=== PATIENT | male | born 1950 | race African-American/Black ===

== ENCOUNTER 2017-05-11 13:00 | Inpatient (IN) | payer MEDICARE ==
[~2017-05-11] VITALS: Ht 177.8 cm; Wt 74.8 kg
--- NOTE | ~2017-05-11 | PN ---
Unit #: [id number] #: [id number] Patient: JORGE VALERIO [id number] [facility] [address] [place] [address] [id number] MR#: [id number] NAME: JORGE VALERIO ROOM: 32 Age: 67 Sex: M Admission Date: 05/12/2017 : 1950 Attending Physician: Cezar Barksdale M.D. Admitting Physician: Cezar Barksdale M.D. Primary Care Physician: Primary Care Physician No ANGELA PROGRESS NOTES DATE OF SERVICE 05/14/2017 DISCUSSION Jorge Valerio is a 67-year-old male seen on 05/14/2017. Patient interviewed, chart reviewed. Obtained information from nursing staff. Patient reported that he is feeling better, decrease in anxiety, depression, sleeping good. Tolerating medication fairly well but still isolative, guarded. Complete review of systems unremarkable. MENTAL STATUS EXAMINATION General appearance, patient dressed casually. Attention span and concentration fair. Oriented to time, place and person. Mood and affect sad, dysphoric. Speech monotone. Thought process concrete. Patient denied any suicidal or homicidal ideation but withdrawn, sad, dysphoric, guarded. Recent and remote memory poor. Insight and judgement poor. DIAGNOSIS Mood disorder NOS. ASSESSMENT/PLAN Advise to continue with current medication and therapeutic protocol. If needed consider further adjustment of medication. Dictated by... Juan Macias/melanie TD: 05/16/2017 03:13 JOB #: [id number] [facility] PROGRESS NOTES Page 1 of 1 X Cezar Barksdale MD PROGRESS NOTE
--- NOTE | ~2017-05-11 | PN ---
Unit #: [id number] #: [id number] Patient: JORGE VALERIO [id number] [facility] [address] [place] [address] [id number] MR#: [id number] NAME: JORGE VALERIO ROOM: 32 Age: 67 Sex: M Admission Date: 05/12/2017 : 1950 Attending Physician: Cezar Barksdale M.D. Admitting Physician: Cezar Barksdale M.D. Primary Care Physician: Primary Care Physician Leia MILLER PROGRESS NOTES DATE OF SERVICE 05/15/2017 DISCUSSION Mr. Jorge Valerio is a 67-year-old male seen on 05/15/2017. Patient continues to be isolative, flat affect, guarded, paranoid but denied any thoughts of harming self or others. Vital signs 98.2, 115, 20, 134/80. Patient was guarded, isolative. Complete review of systems unremarkable. MENTAL STATUS EXAMINATION General appearance, patient dressed casually. Attention span and concentration poor. Oriented to self and place. Mood and affect labile. Speech monotone. Thought process concrete. Patient denied any thoughts of harming self or others but somewhat guarded, paranoid, isolative, seclusive. Recent and remote memory poor. Insight and judgement poor. DIAGNOSIS Major depressive disorder recurrent severe with psychotic features. ASSESSMENT/PLAN Advise to continue with current medication and therapeutic protocol. If needed consider further adjustment of medication. Dictated by... Juan Macias/melanie TD: 05/17/2017 04:16 JOB #: [id number] Unit #: [id number] #: [id number] Patient: JORGE VALERIO PROGRESS NOTES Page 1 of 1 X Cezar Barksdale MD X PROGRESS NOTE
--- NOTE | ~2017-05-11 | PN ---
Unit #: [id number] #: [id number] Patient: JORGE VALERIO [id number] [facility] [address] [place] [address] [id number] I MR#: [id number] NAME: JORGE VALERIO ROOM: [facility] Age: 67 Sex: M Admission Date: 05/12/2017 : 1950 Attending Physician: Cezar Barksdale M.D. Admitting Physician: Cezar Barksdale M.D. Primary Care Physician: Primary Care Physician Leia AYON NOTES DATE OF SERVICE 05/16/2017 DISCUSSION Jorge Valerio is a 67-year-old male seen on 05/16/2017. The patient interviewed, chart reviewed. Obtained information from nursing staff. The patient was compliant, cooperative. Mood sad, dysphoric, flat affect, guarded. The patient was able to maintain safe behavior. No aggressive behavior. The patient compliant, cooperative. Mood sad, dysphoric, anxious. The patient denied any thoughts of harming self or others or any psychotic symptom. Complete Review of Systems: Unremarkable. MENTAL STATUS EXAMINATION General Appearance: The patient dressed casually. Attention span, concentration: Fair. Oriented in time, place, and person. Mood and affect labile. Sad, dysphoric, isolative. Attention span, concentration: Fair. Oriented in place and person. Mood and affect: Sad, depressed. Speech: Monotone. Thought process: [place]. The patient denied any thoughts of harming self or others or any psychotic symptom. Recent and remote memory: Poor. Insight and judgment: Poor. DIAGNOSIS Major depressive disorder, recurrent, severe. ASSESSMENT/PLAN Advised to continue with current medication and therapeutic protocol. If needed, consider further adjustment of medication. Dictated by... Juan Macias/juwan TD: 05/17/2017 12:46 JOB #: [id number] Unit #: [id number] #: [id number] Patient: OJRGE VALERIO PROGRESS NOTES Page 1 of 1 X Cezar Barksdale MD PROGRESS NOTE
--- NOTE | ~2017-05-11 | PA ---
Unit #: [id number] #: [id number] Patient: KRISTI VALERIO [id number] [facility] [address] [place] [address] [id number] MR#: [id number] NAME: KRISTI VALERIO ROOM: [facility] Age: 67 Sex: M Admission Date: 05/12/2017 : 1950 Date of Assessment: Attending Physician: Cezar Barksdale M.D. Admitting Physician: Cezar Barksdale M.D. PSYCHIATRIC ASSESSMENT INFORMANTS The patient reliability, fair informant and chart reliability, good. CHIEF COMPLAINT Depression, anxiety, and paranoia. HISTORY OF PRESENT ILLNESS Mr. Patel is a 57-year-old male, presented with the above-mentioned complaint. The patient was initially assessed on 05/07/2017. At that time, he was having symptoms of depression, paranoia, and suicidal ideation. The patient was subsequently admitted to [facility] and diagnosed with UTI. The patient was treated and subsequently transferred as he is still having symptoms of paranoia, depression, and anxiety. The patient is started on Risperdal and currently on Lexapro. The patient's family is concerned. The patient reported suicidal ideation. The patient stated that he did not have a plan and stated that the daughter said that he was aggressive towards her, but in his opinion he was not aggressive. The patient was in a delirious state when he was admitted to [facility], still having symptoms of anxiety, paranoia, and mood lability. The patient was calm and cooperative. Reported history of depression. The patient reported in the last 4 weeks increase in anxiety, depression, poor appetite, poor sleep, calling family members often for no reasons. The patient denied any homicidal ideation. Denied any auditory or visual hallucination, but paranoia. The patient's daughter is concerned with change of mental status and the above-mentioned symptoms. The patient has no history of any substance abuse. The patient also reported that he could not to go home and take care of himself with all these symptoms; therefore, needed inpatient admission at this time for psychiatric stabilization. PAST PSYCHIATRIC HISTORY Remarkable for history of outpatient treatment for depression. No history of any previous inpatient psychiatric hospitalization. FAMILY HISTORY AND SOCIAL HISTORY The patient has a good support system. No history of abuse. No history of any substance abuse. Family psychiatric illness is remarkable for history of schizophrenia in mother, history of bipolar disorder in nephew, history of bipolar disorder in two brothers, history of anxiety in sister, and history of bipolar disorder in cousin. MEDICAL HISTORY Remarkable for history of UTI and asthma. Unit #: [id number] #: [id number] Patient: KRISTI VALERIO ALLERGIES No known drug allergies. MEDICATION HISTORY The patient is on inhaler, theophylline, and Lexapro 10 mg daily. SUBSTANCE ABUSE HISTORY None. REVIEW OF SYSTEMS HEENT: Eyes, clear. Ears, nose, mouth, and throat; clear. CARDIOVASCULAR: Unremarkable. RESPIRATORY: Unremarkable. GI: Unremarkable. : Unremarkable. SKIN: Unremarkable. LYMPH NODE: Unremarkable. NEUROLOGIC: Unremarkable. ENDOCRINE: Unremarkable. HEMATOLOGIC: Unremarkable. ALLERGIC/IMMUNOLOGIC: Unremarkable. MUSCULOSKELETAL: Muscle strength and tone, no atrophy or abnormal movement. Gait normal. MENTAL STATUS EXAMINATION CONSTITUTIONAL: Measurement of vital signs; temperature 97.6, heart rate 62, respiratory rate 20, and blood pressure 139/52. Height 5 feet 10 inches and weight 165 pounds. GENERAL APPEARANCE: The patient dressed casually. The patient did not show any facial deformity. MUSCULOSKELETAL: Please see above. PSYCHIATRIC EXAMINATION Description of speech; regular rate, normal volume, normal articulation, coherent, and spontaneous. Description of thought process, goal directed. Description of association, intact. Description of abnormal psychotic thinking; the patient denied any hallucination, but paranoia, delusions, mood lability, suicidal ideation, agitation, and confusion. Description of the patient's judgment: Concerning everyday activity, poor. Social situation, poor. Concerning psychiatric condition, poor. Complete mental status examination; oriented in time, place, and person. Recent and remote memory, fair. Attention span and concentration, fair. Language, able to name object and repeat phrases. Fund of knowledge, aware of current event and passive vocabulary fair. Fund of knowledge, fair. Mood and affect, sad and dysphoric. Insight and judgment, fair to poor. ASSETS AND LIABILITIES Assets, the patient is articulate and able to take care of his ADL. Liability, history of depression, anxiety, paranoia, and mood lability. ADMITTING DIAGNOSES Psychiatric: Bipolar mood disorder, recurrent, severe, depressed, F31.9 and anxiety disorder, not otherwise specified, F40.01. Secondary diagnosis: Deferred. Unit #: [id number] #: [id number] Patient: KRISTI VALERIO Medical diagnoses: Asthma and urinary tract infection. Stressors: Psychosocial stressors. PSYCHIATRIC PLAN AND TREATMENT GOAL AND DISCHARGE PLAN 1. Advised to admit the patient on the inpatient unit. Provide safe, supportive, and structured environment. 2. Ordered labs; CBC, CMP, UA, and UDS. 3. Precaution for psychosis. 4. The patient to continue with home medication with a plan to increase Risperdal to 0.5 mg b.i.d. If needed, consider further adjustment of medication. The patient to attend group therapy, individual therapy, and structured milieu. Treatment goal to attain euthymic mood, gain insight into his problem, and learn coping skills. DISCHARGE PLAN Plan to stabilize the patient and consider followup in outpatient program. ESTIMATED LENGTH OF STAY 2 weeks. Dictated by... Cezar Barksdale M.D. LETHA/alie TD: 05/13/2017 16:34 JOB #: [id number] PSYCHIATRIC ASSESSMENT Page 1 of 1 X Cezar Barksdale MD X PSYCHIATRIC ASSESSMENT
--- NOTE | ~2017-05-11 | DS ---
Unit #: [id number] #: [id number] Patient: KRISTI VALERIO [id number] [facility] [address] [place] [address] [id number] MR#: [id number] NAME: KRISTI VALERIO ROOM: [facility] Age: 67 Sex: M Admission Date: 05/12/2017 : 1950 Discharge Date: 05/17/2017 Attending Physician: Cezar Barksdale M.D. Primary Care Physician: Primary Care Physician No DISCHARGE SUMMARY REASON FOR ADMISSION Depression, anxiety, paranoia. DIAGNOSTIC STUDIES LABORATORY RESULTS: Unremarkable. HOSPITAL COURSE The patient was admitted to inpatient unit on 05/12/2017 and discharged on 05/17/2017. The patient was ready treated on the inpatient unit with behavior management, expressive therapy, medication management, psychoeducation, psychotherapy, and structured milieu. The patient was responsive to treatment, showed improvement. Subsequently, the patient was discharged with a plan to follow up in outpatient program. DISCHARGE MEDICATIONS Lexapro 10 mg daily for mood symptom, Vistaril 25 mg b.i.d. for anxiety, Risperdal 0.5 mg b.i.d. for psychosis. DISCHARGE DIAGNOSES Psychiatric: Major depressive disorder, recurrent, severe, F33.2; anxiety disorder, not otherwise specified, F40.01. Secondary diagnosis: Deferred. Medical diagnosis: History of asthma, urinary tract infection. Stressors: Psychosocial stressors. DISCHARGE INSTRUCTIONS The patient to follow up in outpatient clinic as per dialysis social worker. CONDITION ON DISCHARGE The patient was pleasant and cooperative. Denied any psychotic symptom or any suicidal ideation. PROGNOSIS Guarded. DIET AND ACTIVITY As tolerated. Dictated by... Unit #: [id number] #: [id number] Patient: KRISTI VALERIO Cezar Barksdale M.D. SZC/modl TD: 05/18/2017 01:46 JOB #: [id number] DISCHARGE SUMMARY Page 1 of 1 X Cezar Barksdale MD DISCHARGE SUMMARY
--- NOTE | ~2017-05-11 | PN ---
Unit #: [id number] #: [id number] Patient: JORGE VALERIO [id number] [facility] [address] [place] [address] [id number] MR#: [id number] NAME: JORGE VALERIO ROOM: 32 Age: 67 Sex: M Admission Date: 05/12/2017 : 1950 Attending Physician: Cezar Barksdale M.D. Admitting Physician: Cezar Barksdale M.D. Primary Care Physician: Primary Care Physician Leia MILLER PROGRESS NOTES DATE 05/13/2017 DISCUSSION Mr. Jorge Valerio is a 67-year-old male seen on 05/13/2017. Patient interviewed. Chart reviewed. Obtained information from nursing staff. Patient was compliant, cooperative. Mood sad, dysphoric, flat affect, guarded, withdrawn, isolative. Patient's vital signs stable. Patient isolative, guarded. Complete review of systems unremarkable. MENTAL STATUS EXAMINATION General appearance, patient dressed casually. Attention span, concentration fair. Oriented in time, place and person. Mood and affect sad, dysphoric, flat. Speech monotone. Thought process concrete. Patient's thoughts somewhat disorganized, guarded, paranoid, passive SI. Denied any homicidal ideation or any auditory or visual hallucinations but paranoia. Recent and remote memory poor. Insight and judgement poor. DIAGNOSIS Bipolar mood disorder NOS. ASSESSMENT/PLAN Advised to continue with current medication and therapeutic protocol. If needed, consider further adjustment of medication. Dictated by... Juan Macias/veto TD: 05/13/2017 18:29 JOB #: [id number] Unit #: [id number] #: [id number] Patient: JORGE VALERIO PROGRESS NOTES Page 1 of 1 X Cezar Barksdale MD PROGRESS NOTE
--- NOTE | ~2017-05-11 | HP ---
Unit #: [id number] #: [id number] Patient: KRISTI VALERIO [id number] [facility] [address] [place] [address] [id number] I MR#: [id number] NAME: KRISTI VALERIO ROOM: 32 Age: 67 Sex: M Admission Date: 05/12/2017 : 1950 Attending Physician: Cezar Barksdale M.D. Admitting Physician: Cezar Barksdale M.D. Primary Care Physician: Primary Care Physician No HISTORY AND PHYSICAL HISTORY OF PRESENT ILLNESS The patient is a 67-year-old male admitted to [address] [place] [address] on 05/12/2017 for suicidal ideation. PAST MEDICAL HISTORY 1. Asthma. 2. Gout. 3. Hypertension. 4. Hyperlipidemia. 5. COPD. PAST SURGICAL HISTORY Tonsillectomy. SOCIAL HISTORY He is unemployed. He lives alone. He denies alcohol, tobacco, and drug use. FAMILY MEDICAL HISTORY Noncontributory. ALLERGIES Shell fish. CURRENT MEDICATIONS Triamcinolone, theophylline, terbutaline, Flomax, ProAir, allopurinol, Norvasc, aspirin, atorvastatin, Lexapro, Vistaril, labetalol, Omeprazole, and risperidone. REVIEW OF SYSTEMS CONSTITUTIONAL: No fever or chills. HEENT: Denies any sore throat, ear pain or runny nose. CARDIOVASCULAR: Denies chest pain, irregular heart rhythm or palpitations. CHEST: Denies shortness of breath or cough. No hemoptysis. GASTROINTESTINAL: Denies nausea, vomiting, diarrhea or chronic constipation. ENDOCRINE: Denies history of increased thirst or urination. No recent significant weight loss or gain. GENITOURINARY: Denies dysuria, frequency, or hematuria. SKIN: Denies any rashes. HEMATOLOGIC: Denies history of increased bleeding or bruising. MUSCULOSKELETAL: Denies any hot, swollen joints. No generalized muscle pain. Unit #: [id number] #: [id number] Patient: KRISTI VALERIO NEUROLOGIC: Denies problems with vision or speech. No frequent, severe headaches. No numbness, tingling or weakness in any extremities. Denies loss of bladder or bowel control. PHYSICAL EXAMINATION GENERAL: He is awake, alert, and oriented in no acute distress. VITAL SIGNS: Temperature 98.3, heart rate 62, respirations 18, and blood pressure 139/52. HEIGHT: 5 feet 10. WEIGHT: 165 pounds. SKIN: Warm and dry without rash or lesion. HEENT: Normocephalic. TMs not viewed. Oral and nasal passages clear. Conjunctivae clear. PERRLA. EOMs intact. NECK: Supple without lymphadenopathy or thyromegaly. HEART: Regular rate and rhythm without murmur. LUNGS: Clear. ABDOMEN: Soft, nontender. : Not done. EXTREMITIES: No evidence of cyanosis, clubbing or edema. Moves all without focal deficit. NEUROLOGICAL: Grossly within normal limits. Cranial Nerves: II: Visual sandoval are intact. III, IV AND : Extraocular movements are intact. Pupils are equal, round and reactive to light. V: Facial sensation is grossly normal. VII: Facial movements and expression are normal. VIII: Auditory acuity grossly intact. IX, X: Uvula is midline. Phonation is normal. XI: Patient shrugs shoulders and turns head normally. XII: Tongue protrudes in the midline. Sensory and Motor Function: Sensory and motor sensation is grossly normal. Motor: moves all extremities well. IMPRESSION 1. Psychiatric admission. 2. Asthma. 3. Gout. 4. Hypertension. 5. Hyperlipidemia. 6. Chronic obstructive pulmonary disease. RECOMMENDATIONS PSYCHIATRIC: Per psychiatrist. MEDICAL: No contraindication to participate in this facility activities. MEDICAL PROGNOSIS Fair. MEDICAL CONDITION Stable. Dictated by... Julio Paulino TD: 05/13/2017 12:06 Unit #: [id number] #: [id number] Patient: KRISTI VALERIO JOB #: [id number] HISTORY AND PHYSICAL Page 1 of 1 X MARGI UMANZOR APRN HISTORY AND PHYSICAL
== END 2017-05-17 19:12 | disposition home or self-care (01) | DRG 885 ==
LOC: P1S 05-12 18:51
DX: F33.3 Major depressive disorder, recurrent, severe with psychotic symptoms (principal); R45.851 Suicidal ideations; J44.9 Chronic obstructive pulmonary disease, unspecified; F39 Unspecified mood [affective] disorder; F41.9 Anxiety disorder, unspecified; Z81.8 Family history of other mental and behavioral disorders; I10 Essential (primary) hypertension; E78.5 Hyperlipidemia, unspecified; Z91.013 Allergy to seafood; M10.9 Gout, unspecified